=== PATIENT | female | born 1985 | race Caucasian/White ===

== ENCOUNTER 2024-05-11 14:52 | Observation (INO) | payer OTHER ==
[2024-05-11] MEDS ORDERED: LORazepam 1 MG TAB PO PRN ×4 (15:17)
[2024-05-11] MEDS ORDERED: LORazepam 0.5 MG TAB PO PRN (15:17)
[2024-05-11] MEDS ORDERED: LORazepam 2 MG/ML INJ IV PRN ×3 (15:17)
--- NOTE | 2024-05-11 15:27 | ED ---
Seizure HPI - General Chief Complaint: Seizure Stated Complaint: seizure Time Seen by Provider: 05/11/24 14:59 Source: patient, EMS, RN notes reviewed, old records reviewed Mode of arrival: EMS Limitations: no limitations - History of Present Illness Initial Comments: There is a 38-year-old female to ER from [place] for seizure patient has been there for around 15 days with no alcohol history of alcohol abuse patient had seizure today MD Complaint: seizure Description of Episode: loss of consciousness, tonic-clonic movement Witnessed: yes - by bystander Trauma: Yes Seizure History: history of withdrawal seizures Place: home Possible Precipitating Event: none - Related Data Home Medications Medication Instructions Recorded Confirmed Desvenlafaxine Succinate [Pristiq] 25 mg PO DAILY 05/11/24 05/11/24 QUEtiapine FUMARATE 150 mg PO HS 05/11/24 05/11/24 Previous Rx's Medication Instructions Recorded levETIRAcetam [Keppra] 500 mg PO Q12HR 30 Days #60 tab 05/12/24 Allergies Allergy/AdvReac Type Severity Reaction Status Date / Time No Known Allergies Allergy Verified 05/11/24 17:24 Review of Systems ROS Statement: Those systems with pertinent positive or pertinent negative responses have been documented in the HPI. ROS Other: All systems not noted in ROS Statement are negative. Past Medical History Past Medical History: Seizure Disorder History of Any Multi-Drug Resistant Organisms: None Reported Past Surgical History: Breast Surgery Additional Past Surgical History / Comment(s): right shoulder, breast implants Past Psychological History: Anxiety, Depression, PTSD Smoking Status: Current every day smoker, Vaper General Exam Limitations: no limitations General appearance: alert, in no apparent distress Head exam: Present: atraumatic, normocephalic, normal inspection Eye exam: Present: normal appearance, PERRL, EOMI. Absent: scleral icterus, conjunctival injection, periorbital swelling ENT exam: Present: normal exam, mucous membranes moist Neck exam: Present: normal inspection. Absent: tenderness, meningismus, lymphadenopathy Respiratory exam: Present: normal lung sounds bilaterally. Absent: respiratory distress, wheezes, rales, rhonchi, stridor Cardiovascular Exam: Present: regular rate, normal rhythm, normal heart sounds. Absent: systolic murmur, diastolic murmur, rubs, gallop, clicks GI/Abdominal exam: Present: soft, normal bowel sounds. Absent: distended, tenderness, guarding, rebound, rigid Extremities exam: Present: normal inspection, full ROM, normal capillary refill. Absent: tenderness, pedal edema, joint swelling, calf tenderness Back exam: Present: normal inspection Neurological exam: Present: alert, oriented X3, CN II-XII intact Psychiatric exam: Present: normal affect, normal mood Skin exam: Present: warm, dry, intact, normal color. Absent: rash Course Vital Signs 05/11/24 05/11/24 05/11/24 14:55 17:45 20:07 Temperature 97.3 F L 97.7 F Pulse Rate 110 H 73 84 Respiratory 18 16 16 Rate Blood Pressure 133/94 102/65 123/94 O2 Sat by Pulse 97 100 100 Oximetry 05/11/24 05/12/24 05/12/24 22:04 00:49 04:18 Temperature Pulse Rate 82 83 63 Respiratory 16 18 18 Rate Blood Pressure 125/87 131/75 117/81 O2 Sat by Pulse 99 99 99 Oximetry 05/12/24 05/12/24 05/12/24 07:17 09:51 11:00 Temperature 98 F Pulse Rate 84 68 98 Respiratory 16 16 20 Rate Blood Pressure 121/66 120/60 137/99 O2 Sat by Pulse 98 98 98 Oximetry 05/12/24 05/12/24 05/12/24 12:00 15:00 17:11 Temperature Pulse Rate 68 82 68 Respiratory 18 20 20 Rate Blood Pressure 120/68 125/89 130/60 O2 Sat by Pulse 98 98 98 Oximetry - Reevaluation(s) Reevaluation #1: 05/11/24 16:50 Medical record is reviewed Reevaluation #2: 05/11/24 16:50 Patient symptoms unchanged 05/11/24 16:50 Current seizure here in the ER Reevaluation #3: 05/11/24 16:50 Patient informed of results questions answered Reevaluation #4: Was pt. sent in by a medical professional or institution (, PA, SENIOR EDUCATION SPECIALIST, urgent care, hospital, or fdc...) When possible be specific @ -no Did you speak to anyone other than the patient for history (EMS, parent, family, police, friend...)? What history was obtained from this source @ -no Did you review nursing and triage notes (agree or disagree)? Why? @ -agree Are old charts reviewed (outside hosp., previous admission, EMS record, old EKG, old radiological studies, urgent care reports/EKG's, fdc records)? Report findings @ -yes Differential Diagnosis (chest pain, altered mental status, abdominal pain women, abdominal pain men, vaginal bleeding, weakness, fever, dyspnea, syncope, headache, dizziness, GI bleed, back pain, seizure, CVA, palpatations, mental health, musculoskeletal)? @ -prior EKG interpreted by me (3pts min.). @ -yes X-rays interpreted by me (1pt min.). @ -no CT interpreted by me (1pt min.). @ -yes negative for acute disease U/S interpreted by me (1pt. min.). @ -no What testing was considered but not performed or refused? (CT, X-rays, U/S, labs)? Why? @ -none What meds were considered but not given or refused? Why? @ -none Did you discuss the management of the patient with other professionals (prof melodie i.e. , PA, SENIOR EDUCATION SPECIALIST, lab, RT, psych nurse, social media analyst, laundry press operator, teacher, civilian jail officer, case hardener)? Give summary @ -no Was smoking cessation discussed for >3mins.? @ -no Was critical care preformed (if so, how long)? @ -no Were there social determinants of health that impacted care today? How? (Homelessness, low income, unemployed, alcoholism, drug addiction, transportation, low edu. Level, literacy, decrease access to med. care, nursing home, rehab)? @ -none Was there de-escalation of care discussed even if they declined (Discuss DNR or withdrawal of care, Hospice)? DNR status @ -no What co-morbidities impacted this encounter? (DM, HTN, Smoking, COPD, CAD, Cancer, CVA, ARF, Chemo, Hep., AIDS, mental health diagnosis, sleep apnea, morbid obesity)? @ -none Was patient admitted / discharged? Hospital course, mention meds given and route, prescriptions, significant lab abnormalities, going to OR and other pertinent info. @ - 38 female will admit for new onset seizure Admit Undiagnosed new problem with uncertain prognosis? @ -no Drug Therapy requiring intensive monitoring for toxicity (Heparin, Nitro, Insulin, Cardizem)? @ -no Were any procedures done? @ -no Diagnosis/symptom? @ -New onset seizure Acute, or Chronic, or Acute on Chronic? @ -Acute Uncomplicated (without systemic symptoms) or Complicated (systemic symptoms)? @ -Complicated Side effects of treatment? @ -no Exacerbation, Progression, or Severe Exacerbation? @ -exacerbation Poses a threat to life or bodily function? How? (Chest pain, [place], [place], pneumonia, PE, COPD, DKA, ARF, appy, cholecystitis, CVA, Diverticulitis, Homicidal, Suicidal, threat to staff... and all critical care pts) @ -yes alcohol with seizure intoxication Reevaluation #5: Differential Seizure: Recurrent seizure disorder, febrile seizure, alcohol withdrawal, stimulants, meningitis, encephalitis, intercranial hemorrhage, intracranial tumor, stroke, eclampsia, thyrotoxicosis, hypocalcemia, hyponatremia, hypernatremia, hypomagnesemia, psychogenic, this is not meant to be an all-inclusive list. Medical Decision Making - Medical Decision Making 38 female will admit for new onset seizure - Lab Data Result diagrams: 05/12/24 04:13 05/12/24 04:13 Lab Results 05/11/24 05/11/24 Range/Units 15:23 15:23 WBC 5.3 (3.8-10.6) k/uL RBC 4.15 (3.80-5.40) m/uL Hgb 12.5 (11.4-16.0) gm/dL Hct 38.2 (34.0-46.0) % MCV 92.1 (80.0-100.0) fL MCH 30.2 (25.0-35.0) pg MCHC 32.8 (31.0-37.0) g/dL RDW 13.1 (11.5-15.5) % Plt Count 291 (150-450) k/uL MPV 7.1 Neutrophils % 67 % Lymphocytes % 23 % Monocytes % 5 % Eosinophils % 2 % Basophils % 0 % Neutrophils # 3.6 (1.3-7.7) k/uL Lymphocytes # 1.2 (1.0-4.8) k/uL Monocytes # 0.3 (0-1.0) k/uL Eosinophils # 0.1 (0-0.7) k/uL Basophils # 0.0 (0-0.2) k/uL Sodium 138 (137-145) mmol/L Potassium 4.1 (3.5-5.1) mmol/L Chloride 110 H (98-107) mmol/L Carbon Dioxide 23 (22-30) mmol/L Anion Gap 5 mmol/L BUN 9 (7-17) mg/dL Creatinine 0.62 (0.52-1.04) mg/dL Est GFR (CKD-EPI)AfAm >90 (>60 ml/min/1.73 sqM) Est GFR (CKD-EPI)NonAf >90 (>60 ml/min/1.73 sqM) Glucose 69 L (74-99) mg/dL Calcium 9.0 (8.4-10.2) mg/dL Phosphorus 2.2 L (2.5-4.5) mg/dL Magnesium 2.0 (1.6-2.3) mg/dL Total Bilirubin 0.4 (0.2-1.3) mg/dL AST 27 (14-36) U/L ALT 23 (4-34) U/L Alkaline Phosphatase 77 (38-126) U/L Total Protein 6.5 (6.3-8.2) g/dL Albumin 4.4 (3.5-5.0) g/dL Lipase 664 H (23-300) U/L Salicylates <1.0 mg/dL Acetaminophen <10.0 ug/mL Serum Alcohol <10 mg/dL - EKG Data -: EKG Interpreted by Me (EKG is sinus 84 LA 140 QRS 89 QTc 409) - Radiology Data Radiology results: report reviewed (CT brain is negative for acute disease), image reviewed Disposition Clinical Impression: New onset seizure Disposition: ADMITTED IP TO THIS [facility] Condition: Fair Is patient prescribed a controlled substance at d/c from ED?: No Time of Disposition: 18:20
[2024-05-11 15:37] LABS: Basophils % (A) 0 %; Eosinophils # (A) 0.1 k/uL (0-0.7); Eosinophils % (A) 2 %; HCT 38.2 % (34.0-46.0); HGB 12.5 gm/dL (11.4-16.0); Lymphocytes # (A) 1.2 k/uL (1.0-4.8); Lymphocytes % (A) 23 %; MCH 30.2 pg (25.0-35.0); MCHC 32.8 g/dL (31.0-37.0); MCV 92.1 fL (80.0-100.0); Mean Platelet Volume 7.1; Monocytes # (A) 0.3 k/uL (0-1.0); Monocytes % (A) 5 %; Neutrophils # (A) 3.6 k/uL (1.3-7.7); Neutrophils % (A) 67 %; Platelet Count 291 k/uL (150-450); RBC 4.15 m/uL (3.80-5.40); RDW 13.1 % (11.5-15.5); WBC 5.3 k/uL (3.8-10.6)
[2024-05-11] MEDS: SODIUM CHLORIDE 0.9% 1,000 ML IV STA (16:13)
[2024-05-11 16:16] LABS: ALT 23 U/L (4-34); AST 27 U/L (14-36); Acetaminophen <10.0 ug/mL; African American GFR (CKD) >90 (>60 ml/min/1.73 sqM); Albumin 4.4 g/dL (3.5-5.0); Alcohol <10 mg/dL; Alkaline Phosphatase 77 U/L (38-126); Anion Gap 5 mmol/L; Blood Urea Nitrogen 9 mg/dL (7-17); Carbon Dioxide 23 mmol/L (22-30); Chloride 110 mmol/L (98-107); Glucose 69 mg/dL (74-99); Lipase 664 U/L (23-300); Non-African American GFR(CKD) >90 (>60 ml/min/1.73 sqM); Phosphorus 2.2 mg/dL (2.5-4.5); Potassium 4.1 mmol/L (3.5-5.1); Salicylate <1.0 mg/dL; Sodium 138 mmol/L (137-145); Total Bilirubin 0.4 mg/dL (0.2-1.3); Total Protein 6.5 g/dL (6.3-8.2)
[2024-05-11] MEDS: levETIRAcetam IV 500 MG/5 ML VIAL IVP STA (16:18)
[2024-05-11] MEDS: LORazepam 2 MG/ML INJ IV STA (16:21)
--- NOTE | 2024-05-11 18:14 | CT ---
EXAMINATION TYPE: CT brain wo con DATE OF EXAM: 05/11/2024 COMPARISON: None INDICATION: Seizure activity DLP: 1110.4 mGycm, Automated exposure control for dose reduction was used. CONTRAST: None CT of the brain is performed utilizing 3 mm thick sections through the posterior fossa and 3 mm thick sections through the remaining calvarium. Study is performed within 24 hours of arrival to the hosp ital. No abnormal hyperdensity is present to suggest an acute intracranial hemorrhage. No mass lesion is evident. No acute infarcts are evident. Temporal lobes appear symmetrical Ventricles and sulci are appropriate for the patient age. Paranasal sinuses and mastoid air cells within the [id number] are clear. IMPRESSION: 1. No acute intracranial process. Follow up MRI can be performed as clinically indicated. [facility], Workstation: [facility], 05/11/2024 6:12 PM
[2024-05-11] MEDS ORDERED: ONDANSETRON 4 MG/2 ML VIAL IVP PRN (18:23)
[2024-05-11] MEDS ORDERED: NALOXONE 0.4 MG/ML 1 ML VIAL IV PRN (18:23)
[2024-05-11] MEDS: SODIUM CHLORIDE 0.9% 1,000 ML IV SCH (18:32)
[2024-05-11] MEDS: IBUPROFEN 800 MG TAB PO STA (21:32)
[2024-05-11 22:18] LABS: Glucose,Whole Blood 98 mg/dL (70-110)
[2024-05-12 07:18] VITALS: TEMP 98
[2024-05-12 10:39] LABS: Basophils # (A) 0.05 X 10*3/uL (0.00-0.10); Basophils % (A) 0.7 %; Eosinophils # (A) 0.18 X 10*3/uL (0.04-0.35); Eosinophils % (A) 2.5 %; HCT 36.2 % (37.2-46.3); HGB 11.9 g/dL (12.0-15.0); Lymphocytes # (A) 2.36 X 10*3/uL (0.90-5.00); Lymphocytes % (A) 32.2 %; MCH 29.9 pg (27.0-32.0); MCHC 32.9 g/dL (32.0-37.0); Monocytes # (A) 0.68 X 10*3/uL (0.20-1.00); Monocytes % (A) 9.3 %; NRBC Per 100 WBC 0 X 10*3/uL (0.00-0.01); Neutrophils # (A) 4.03 X 10*3/uL (1.80-7.70); Platelet Count 262 X 10*3/uL (140-440); RBC 3.98 X 10*6/uL (4.10-5.20); RDW 13.2 % (11.5-14.5); WBC 7.32 X 10*3/uL (4.50-10.00)
--- NOTE | 2024-05-12 11:12 | P.HPIM ---
History of Present Illness Patient is a pleasant 38-year-old female came in after a new episode of seizure that happened and was witnessed by people at [facility]. Patient last week of alcohol was 15 days ago patient does not have any alcohol withdrawals at this time patient CIWA is around 0 at this time. Patient had a similar episode few weeks ago at that time they were not sure patient actually had a seizure at this time patient had a witnessed seizure with tonic- clonic activity loss of consciousness and a recent brief episode of postictal state along with tongue biting without any loss of bladder bowel or bladder continence. Neurology was consulted. Patient was given a dose of Keppra. Patient was started on CIWA protocol. CIWA protocol will be discontinued REVIEW OF SYSTEMS: All other systems are negative except those mentioned in the HPI PHYSICAL EXAMINATION: GENERAL: The patient is alert and oriented x3, not in any acute distress. Well developed, well nourished. HEENT: Pupils are round and equally reacting to light. EOMI. No scleral icterus. No conjunctival pallor. Normocephalic, atraumatic. No pharyngeal erythema. No thyromegaly. CARDIOVASCULAR: S1 and S2 present. No murmurs, rubs, or gallops. PULMONARY: Chest is clear to auscultation, no wheezing or crackles. ABDOMEN: Soft, nontender, nondistended, normoactive bowel sounds. No palpable organomegaly. MUSCULOSKELETAL: No joint swelling or deformity. EXTREMITIES: No cyanosis, clubbing, or pedal edema. NEUROLOGICAL: Gross neurological examination did not reveal any focal deficits. SKIN: No rashes. Assessment and plan -New onset seizure: Patient does not have any alcohol withdrawal seizures at this time patient appears to have new onset seizure neurology evaluation EEG possibly of discharge on Keppra if cleared by neurology today. -My last visit elevation of lipase no clinical evidence of pancreatitis at this time -Depression/anxiety DVT prophylaxis: Early ambulation text Past Medical History Past Medical History: Seizure Disorder History of Any Multi-Drug Resistant Organisms: None Reported Past Surgical History: Breast Surgery Additional Past Surgical History / Comment(s): right shoulder, breast implants Past Psychological History: Anxiety, Depression, PTSD Smoking Status: Current every day smoker, Vaper Medications and Allergies Home Medications Medication Instructions Recorded Confirmed Type Desvenlafaxine Succinate [Pristiq 25 mg PO DAILY 05/11/24 05/11/24 History ER] QUEtiapine FUMARATE 150 mg PO HS 05/11/24 05/11/24 History Allergies Allergy/AdvReac Type Severity Reaction Status Date / Time No Known Allergies Allergy Verified 05/11/24 17:24 Physical Exam Vitals: Vital Signs Temp Pulse Resp BP Pulse Ox 05/12/24 09:51 68 16 120/60 98 05/12/24 07:17 98 F 84 16 121/66 98 05/12/24 04:18 63 18 117/81 99 05/12/24 00:49 83 18 131/75 99 05/11/24 22:04 82 16 125/87 99 05/11/24 20:07 84 16 123/94 100 05/11/24 17:45 97.7 F 73 16 102/65 100 05/11/24 14:55 97.3 F L 110 H 18 133/94 97 Results CBC & Chem 7: 05/12/24 04:13 05/11/24 15:23 Labs: Abnormal Lab Results - Last 24 Hours (Table) 05/11/24 05/12/24 Range/Units 15:23 04:13 RBC 3.98 L (4.10-5.20) X 10*6/uL Hgb 11.9 L (12.0-15.0) g/dL Hct 36.2 L (37.2-46.3) % Chloride 110 H (98-107) mmol/L Glucose 69 L (74-99) mg/dL Phosphorus 2.2 L (2.5-4.5) mg/dL Lipase 664 H (23-300) U/L
[2024-05-12 11:19] LABS: ALT 19 U/L (8-44); AST 25 U/L (13-35); Albumin 4.1 g/dL (3.8-4.9); Albumin/Globulin Ratio 2.41 Ratio (1.60-3.17); Alkaline Phosphatase 77 U/L (41-126); BUN/Creat Ratio 10.33 Ratio (12.00-20.00); Blood Urea Nitrogen 6.2 mg/dL (9.0-27.0); Calcium 8.7 mg/dL (8.7-10.3); Carbon Dioxide 23.9 mmol/L (21.6-31.8); Chloride 107 mmol/L (96-109); Globulin 1.7 g/dL (1.6-3.3); Glucose 85 mg/dL (70-110); Magnesium 2.3 mg/dL (1.5-2.4); Phosphorus 3.4 mg/dL (2.4-5.1); Potassium 4.1 mmol/L (3.5-5.5); Sodium 140 mmol/L (135-145); Total Bilirubin 0.6 mg/dL (0.3-1.2); Total Protein 5.8 g/dL (6.2-8.2)
[2024-05-12] MEDS: ALPRAZolam 0.5 MG TAB PO PRN (13:05)
[2024-05-12 15:04] VITALS: RESP 20
--- NOTE | 2024-05-12 16:44 | P.DS ---
Providers Date of admission: 05/11/24 18:25 Expected date of discharge: 05/12/24 Attending physician: Nikolas Anne Consults: 05/11/24 18:23 Consult Physician Routine Consulting Provider: Lucio Lundy Consult Reason/Comments: sz Do you want consulting provider notified?: Yes Primary care physician: Physician Nonstaff Hospital Course: Final diagnosis -New onset seizure: Patient does not have any alcohol withdrawal seizures at this time patient appears to have new onset seizure neurology evaluation EEG possibly of discharge on Keppra if cleared by neurology today. Patient was evaluated by neurology today underwent EEG which was normal recommending continuing Keppra twice daily for 30 days and close outpatient follow-up with neurology. - elevation of lipase no clinical evidence of pancreatitis at this time -Depression/anxiety DVT prophylaxis: Early ambulation Discharge disposition Patient is being discharged in a stable condition with guarded prognosis to [facility] for continued rehab. Patient will follow-up with her primary care provider in the outpatient setting upon discharge. Patient is to continue with oral Keppra 500 mg twice daily and outpatient follow-up with neurology as scheduled. Total time taken is greater than 35 minutes. Hospital course Patient is a pleasant 38-year-old female came in after a new episode of seizure that happened and was witnessed by people at [facility]. Patient last week of alcohol was 15 days ago patient does not have any alcohol withdrawals at this time patient CIWA is around 0 at this time. Patient had a similar episode few weeks ago at that time they were not sure patient actually had a seizure at this time patient had a witnessed seizure with tonic- clonic activity loss of consciousness and a recent brief episode of postictal state along with tongue biting without any loss of bladder bowel or bladder continence. Neurology was consulted. Patient was given a dose of Keppra. Patient was started on CIWA protocol. CIWA protocol will be discontinued REVIEW OF SYSTEMS: All other systems are negative except those mentioned in the HPI PHYSICAL EXAMINATION: GENERAL: The patient is alert and oriented x3, not in any acute distress. Well developed, well nourished. HEENT: Pupils are round and equally reacting to light. EOMI. No scleral icterus. No conjunctival pallor. Normocephalic, atraumatic. No pharyngeal erythema. No thyromegaly. CARDIOVASCULAR: S1 and S2 present. No murmurs, rubs, or gallops. PULMONARY: Chest is clear to auscultation, no wheezing or crackles. ABDOMEN: Soft, nontender, nondistended, normoactive bowel sounds. No palpable organomegaly. MUSCULOSKELETAL: No joint swelling or deformity. EXTREMITIES: No cyanosis, clubbing, or pedal edema. NEUROLOGICAL: Gross neurological examination did not reveal any focal deficits. SKIN: No rashes. Please refer to medication reconciliation sheet for a list of medications. The impression and plan of care has been dictated by Kelle Rodriguez, Nurse Practitioner as directed. Dr. Mendez MD I have performed a history and examination and MDM of this patient, discussed the same with the dictator, and agree with the dictator's assessment and plan as written ,documented as a scribe. Based on total visit time, I have performed more than 50% of the visit. Patient Condition at Discharge: Fair Plan - Discharge Summary New Discharge Prescriptions: New levETIRAcetam [Keppra] 500 mg PO Q12HR 30 Days #60 tab Continue Desvenlafaxine Succinate [Pristiq] 25 mg PO DAILY QUEtiapine FUMARATE 150 mg PO HS Discharge Medication List Desvenlafaxine Succinate [Pristiq] 25 mg PO DAILY 05/11/24 [History] QUEtiapine FUMARATE 150 mg PO HS 05/11/24 [History] levETIRAcetam [Keppra] 500 mg PO Q12HR 30 Days #60 tab 05/12/24 [Rx] Follow up Appointment(s)/Referral(s): None,Stated [REFERRING] - 1-2 days Patient Instructions/Handouts: Seizure/Epilepsy Discharge Instructions & Follow-Up Activity/Diet/Wound Care/Special Instructions: Patient okay for discharge per neurology Continue Keppra 500 mg twice daily and has been sent to [facility] Patient to return to inpatient rehab Follow-up with neurology outpatient Follow-up with primary care provider on discharge Discharge Disposition: OTHER INSTITUTION NOT DEFINED
[2024-05-12] MEDS: levETIRAcetam 500 MG TAB PO STA (17:05)
[2024-05-12 17:12] VITALS: BP 130/60; PULSE 68
--- NOTE | 2024-05-12 21:29 | EEG ---
ELECTROENCEPHALOGRAM REPORT PREAMBLE: This is a 38-year-old female, who has presented with a seizure. The patient has had a history of alcohol abuse. EEG FINDINGS: This is a 21-channel EEG recorded utilizing 10/20 international system with referential and bipolar montages. Background consists of well-developed, well regulated, mixed frequencies of low-voltage fast frequency beta intermixed with 9 to 10 hertz alpha activity seen in bihemispheric region. Background is posterior dominant and is reactive to eye opening and closing. Photic driving response was not clearly seen. Drowsiness was seen with appearance of bilaterally symmetric theta frequency rhythm. Some stage 2 sleep was attained with presence of vertex waves and sleep spindles. More deeper stages of sleep were not seen. No focal or generalized epileptiform activity was seen. EKG channel showed no obvious arrhythmia. IMPRESSION: This is a normal EEG during wakefulness, drowsiness, and stage 2 sleep. No focal, lateralized, or epileptiform activity was seen. The presence of slightly excessive low- voltage fast frequency beta activity suggests benzodiazepine effect. MMLIZAL / IJN: [id number] /
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
== END 2024-05-12 17:34 | disposition other institution (70) ==
LOC: EC 14:52 → 5NMEDONC 18:25 → 4SSUR 05-12 00:58
PROVIDERS: ADMIT Family Medicine; ATTEND Family Medicine
DX: G40.909 Epilepsy, unspecified, not intractable, without status epilepticus (principal); R74.8 Abnormal levels of other serum enzymes; F10.21 Alcohol dependence, in remission; F32.A Depression, unspecified; F41.9 Anxiety disorder, unspecified; F43.10 Post-traumatic stress disorder, unspecified; Z98.82 Breast implant status; Z79.899 Other long term (current) drug therapy; F17.290 Nicotine dependence, other tobacco product, uncomplicated
CPT/HCPCS: 96361; 96374; 96375; 99285; 36415; 95816; 93005; 80053 ×2; 83690; 83735 ×2; 84100 ×2; 85025 ×2; 80143; 80179; 70450; G0378 ×3; G0480; J2060; J1953; 80320